=== PATIENT | male | born 1985 | race Caucasian/White ===

== ENCOUNTER 2021-07-19 21:07 | Emergency (ER) | payer SELFPAY | END 2021-07-19 23:45 | disposition left against medical advice (07) | LOC: CSHERS 21:07 | DX: Z53.21 Procedure and treatment not carried out due to patient leaving prior to being seen by health care provider (principal) ==

== ENCOUNTER 2024-05-16 08:48 | Outpatient (CLI) | payer OTHER | END 2024-05-16 08:49 | disposition home or self-care (01) | LOC: CSHSLEEP 08:48 | PROVIDERS: ATTEND Family Medicine | DX: R53.83 Other fatigue (principal); R06.83 Snoring; G47.33 Obstructive sleep apnea (adult) (pediatric) | CPT/HCPCS: 95811 ==